=== PATIENT | male | born 1990 | race Caucasian/White ===

== ENCOUNTER 2016-09-01 21:26 | Emergency (ER) | payer OTHER ==
[2016-09-01] MEDS ORDERED: Penicillin VK TAB* 250 MG PO ONE ×2 (22:36→22:37)
[2016-09-01 22:54] VITALS: BP 105/59
--- NOTE | 2016-09-03 07:36 | ED ---
Valeria Oakes Alok, scribed for Joshua Cifuentes MD on 09/01/16 at 2147 . Throat Pain/Nasal Congestion - HPI Summary HPI Summary: 26M presents to the ED with a sore throat for the past 2 weeks. Pt also notes left ear pain as well as left side dental pain due to a new wisdom teeth coming out. Pt denies abd pain. - History of Current Complaint Chief Complaint: EDThroatPain Time Seen by Provider: 09/01/16 21:38 Hx Obtained From: Patient Onset/Duration: Lasting Weeks, Still Present Severity: Moderate Associated Signs And Symptoms: Positive: Negative Cough: None - Allergies/Home Medications Allergies/Adverse Reactions: Allergies Allergy/AdvReac Type Severity Reaction Status Date / Time Pseudoephedrine Allergy Swelling Verified 09/01/16 21:33 [From Sudafed] Of Face,Lips,& Throat PMH/Surg Hx/FS Hx/Imm Hx Endocrine/Hematology History: Denies: Hx Diabetes Cardiovascular History: Denies: Hx Hypertension Infectious Disease History: Denies: Traveled Outside the [place] in Last 30 Days - Family History Known Family History: Negative: Diabetes - Social History Occupation: Unemployed Review of Systems Negative: Fever Positive: Dental Pain, Sore Throat, Ear Ache Negative: Abdominal Pain All Other Systems Reviewed And Are Negative: Yes Physical Exam Triage Information Reviewed: Yes Vital Signs On Initial Exam: Initial Vitals Temp Pulse Resp BP Pulse Ox 98.1 F 54 16 120/63 99 09/01/16 21:30 09/01/16 21:30 09/01/16 21:30 09/01/16 21:30 09/01/16 21:30 Vital Signs Reviewed: Yes Appearance: Positive: Well-Appearing, No Pain Distress Skin: Positive: Warm, Skin Color Reflects Adequate Perfusion, Dry Head/Face: Positive: Normal Head/Face Inspection Eyes: Positive: Normal ENT: Positive: Other - Some adrenal lymphadenopathy. Swollen tonsils on both sides with Tonsillar exudate. Left side slightly more swollen than the right. Neck: Positive: Other: - Some adrenal lymphadenopathy Respiratory/Lung Sounds: Positive: Clear to Auscultation, Breath Sounds Present Cardiovascular: Positive: RRR Abdomen Description: Positive: Nontender, Soft Bowel Sounds: Positive: Present Musculoskeletal: Positive: Normal Neurological: Positive: Normal Psychiatric: Positive: Normal, Affect/Mood Appropriate Diagnostics - Vital Signs Vital Signs Temp Pulse Resp BP Pulse Ox 09/01/16 21:30 98.1 F 54 16 120/63 99 - Laboratory Lab Results: Lab Results 09/01/16 Range/Units 21:00 Group A Strep Rapid Positive H (Negative) Lab Statement: Any lab studies that have been ordered have been reviewed, and results considered in the medical decision making process. EENT Course/Dx - Course Course Of Treatment: Mr. Hubbard has had a ST for 3-4 weeks. His throat looked pretty swollen and red worse on the right than the left. He may be developing an abscess but there is nothing to drain at this point. His RST was positive and I will treat him. - Diagnoses Provider Diagnoses: Strep pharyngitis Discharge - Discharge Plan Condition: Stable Disposition: HOME Prescriptions: Penicillin VK TAB* [Penicillin VK 250 mg Tab*] 500 mg PO QID #28 tab Patient Education Materials: Strep Throat (ED) Referrals: No Primary Care Phys,NOPCP [Medical Doctor] - The documentation as recorded by the Valeria giraldo Alok accurately reflects the service I personally performed and the decisions made by me, Joshua Cifuentes MD.
== END 2016-09-01 22:52 | disposition home or self-care (01) ==
LOC: ED 21:26
DX: J02.0 Streptococcal pharyngitis (principal); H92.02 Otalgia, left ear
CPT/HCPCS: 87651; 99282; A9270-GY